=== PATIENT | female | born 1945 | race Caucasian/White ===

== ENCOUNTER 2018-06-17 08:55 | Day surgery (SDC) | payer OTHER ==
[~2018-06-17] VITALS: Ht 157.5 cm; Wt 104.8 kg
[~2018-06-17 08:55] MED LIST: APIX5TAB PO; DILT180C54 PO; GLUC-230 PO; HYDR12.529 PO; LISI40TA4 PO; METH10TA7 PO; METO25TA6 PO; MULT-1146 PO; SERT50TA PO; TOPI50TA PO
[2018-06-17] MEDS ORDERED: METH25TA5 PO (10:34)
[2018-06-17] MEDS ORDERED: PROPOFOL 200MG/20ML VIAL IV ONE ×2 (10:58→11:13)
[2018-06-17] MEDS ORDERED: MIDAZOLAM HCL 2 MG/2 ML VIAL ONE (10:58)
[2018-06-17] MEDS ORDERED: GLYCOPYRROLATE 0.2 MG/ML 2ML VIAL ONE (10:59)
== END 2018-06-17 13:20 | disposition home or self-care (01) ==
LOC: OR 08:55
PROVIDERS: ATTEND Internal Medicine Gastroenterology
DX: K52.9 Noninfective gastroenteritis and colitis, unspecified (principal); K57.90 Diverticulosis of intestine, part unspecified, without perforation or abscess without bleeding; K29.40 Chronic atrophic gastritis without bleeding; K31.7 Polyp of stomach and duodenum; E03.9 Hypothyroidism, unspecified; G47.30 Sleep apnea, unspecified; I48.91 Unspecified atrial fibrillation; E66.01 Morbid (severe) obesity due to excess calories; Z80.0 Family history of malignant neoplasm of digestive organs; F32.9 Major depressive disorder, single episode, unspecified; M19.90 Unspecified osteoarthritis, unspecified site
CPT/HCPCS: 43239; 45380; 82962; 88305; 88312; 88313; 93005; J2250; J2704; J3490